=== PATIENT | female | born 1965 | race Caucasian/White ===

== ENCOUNTER 2017-04-07 20:51 | Emergency (ER) | payer OTHER ==
[2017-04-07 23:36] LABS: CARBON DIOXIDE 30.5 mmol/L (21-32); CHLORIDE SERUM 104 mmol/L (98-107); CREATININE SERUM 0.9 mg/dL (0.6-1.0); GFR1 > 60 mL/min; GLUCOSE SERUM 101 mg/dL (74-106); POTASSIUM SERUM 3.8 mmol/L (3.5-5.1); SODIUM SERUM 142 mmol/L (136-145)
[2017-04-07 23:42] LABS: ALBUMIN 3.4 g/dL (3.4-5.0); ALKALINE PHOSPHATASE 109 U/L (46-116); ALT/SGPT 31 U/L (14-59); AST/SGOT 21 U/L (15-37); BILIRUBIN TOTAL 0.3 mg/dL (0.20-1.00); TOTAL PROTEIN, SERUM 7.7 g/dL (6.4-8.2)
[2017-04-07 23:44] LABS: BASOPHIL % 1.1 % (0-2); PLATELET COUNT 296 x10^3mcL (130-400)
[2017-04-08 06:01] VITALS: BP 116/73
== END 2017-04-08 06:01 | disposition home or self-care (01) ==
LOC: ED 20:51
PROVIDERS: Emergency Medicine
DX: M54.2 Cervicalgia (principal); E04.1 Nontoxic single thyroid nodule; Z88.5 Allergy status to narcotic agent; Z88.6 Allergy status to analgesic agent
CPT/HCPCS: J1200; J1885; Q9967

== ENCOUNTER 2017-07-06 20:49 | Emergency (ER) | payer OTHER ==
[~2017-07-06] VITALS: Ht 152.4 cm; Wt 94.8 kg
[2017-07-06 21:29] LABS: CALCIUM 8.6 mg/dL (8.5-10.1); CARBON DIOXIDE 26.4 mmol/L (21-32); CHLORIDE SERUM 105 mmol/L (98-107); CREATININE SERUM 0.8 mg/dL (0.6-1.0); GFR1 > 60 mL/min; GLUCOSE SERUM 107 mg/dL (74-106); POTASSIUM SERUM 3.2 mmol/L (3.5-5.1); SODIUM SERUM 140 mmol/L (136-145)
[2017-07-06 22:26] VITALS: BP 118/74
== END 2017-07-06 22:26 | disposition home or self-care (01) ==
LOC: ED 20:49
PROVIDERS: Emergency Medicine
DX: J20.8 Acute bronchitis due to other specified organisms (principal); R19.7 Diarrhea, unspecified; Z90.710 Acquired absence of both cervix and uterus; Z88.5 Allergy status to narcotic agent